=== PATIENT | female | born 1990 | race Caucasian/White ===

== ENCOUNTER → 2017-02-03 | Outpatient (CLI) | payer BC ==
[~2017-02-03] MED LIST: BACTRIM DS 8001 TAB; BACTRIM DS 8001 TAB PO; CEPHALEXIN500 M1 PO; NORCO 325 MG-51 TAB PO
== END ==
LOC: COL.RAD 08:52
DX: R11.2 Nausea with vomiting, unspecified (principal); K21.9 Gastro-esophageal reflux disease without esophagitis

== ENCOUNTER → 2017-03-03 | Outpatient (CLI) | payer BC | LOC: COL.RAD 06:18 | DX: R11.2 Nausea with vomiting, unspecified (principal) | CPT/HCPCS: A9541 ==

== ENCOUNTER → 2019-05-19 | Outpatient (CLI) | payer OTHER | LOC: COL.RAD 06:55 | DX: R11.2 Nausea with vomiting, unspecified (principal) | CPT/HCPCS: A9541 ==

== ENCOUNTER → 2020-04-02 | Outpatient (CLI) | payer OTHER | LOC: ZCOL.LAB 18:13 | DX: B34.9 Viral infection, unspecified (principal); Z20.828 Contact with and (suspected) exposure to other viral communicable diseases ==

== ENCOUNTER 2024-01-05 01:33 | Inpatient (IN) | payer OTHER ==
[2024-01-05] VITALS (41 sets, daily range): BP systolic 78–139; BP diastolic 38–79; PULSE 66–107; TEMP 97.6–98.8
[~2024-01-05] VITALS: Ht 175.3 cm; Wt 125.0 kg
--- NOTE | 2024-01-05 01:45 | NUR ---
PT TO ROOM AMBULATORY WITH S.O. STATES HAD GUSH CLEAR FLUID ABOUT 0055. FEELS OCCASIONAL MILD CRAMPS. REPORTS ACTIVE FM, SMALL AMOUNT VAGINAL SPOTTING SINCE THEN. ORIENTED TO ROOM AND GIVEN GOWN TO CHANGE INTO.
[2024-01-05] MEDS ORDERED: LR 1,000 ML IV PRN (02:00)
--- NOTE | 2024-01-05 02:08 | NUR ---
AMNIOTEST POSITIVE. SMALL TO MOD AMT CLEAR FLUID OBSERVED.
[2024-01-05] MEDS ORDERED: Penicillin G Potassium 5,000,000 UNITS in NS 100 ML IV ONE (02:45)
[2024-01-05] MEDS ORDERED: LR 1,000 ML IV SCH (02:45)
[2024-01-05 03:14] LABS: BASO % 0.4 % (0.0-2.0); EOS % 0.2 % (0.0-4.0); GRAN # 7.4 K/mm3 (1.4-6.5); GRAN % 67.2 % (42.2-75.2); HEMATOCRIT 37.1 % (37.0-47.0); LYMPH # 2.6 K/mm3 (1.2-3.4); LYMPH % 23.1 % (20.0-51.0); MEAN CELL VOLUME 95 fl (80.0-100.0); MEAN CORPUSCULAR HEMOGLOBIN 33 pg (27-31); MEAN CORPUSCULAR HGB CONC 35 g/dl (33.0-37.0); MEAN PLATELET VOLUME 10.3 fl (7.4-10.4); MONO # 0.9 K/mm3 (0.1-0.6); MONO % 7.8 % (1.7-9.3); PLATELET COUNT 171 K/mm3 (130-400); RED BLOOD COUNT 3.89 M/mm3 (4.10-5.30)
[2024-01-05] MEDS ORDERED: WELLBUTRIN SR150 M1 PO (04:06)
[2024-01-05] MEDS ORDERED: PRENATAL TABLET PO (04:07)
--- NOTE | 2024-01-05 06:30 | NUR ---
RN AT BEDSIDE. PT REPORTS CTX Q3 MINUTES, "FEELS LIKE PERIOD CRAMP," LOF CONTINUOUSLY WITH PAD AND PANTIES, PT UP TO BATHROOM.
[2024-01-05] MEDS ORDERED: Penicillin G Potassium 2,500,000 UNITS in NS 100 ML IV SCH (06:35)
[2024-01-05] MEDS ORDERED: LR & Oxytocin 500 ML IV SCH (07:00)
--- NOTE | 2024-01-05 08:00 | NUR ---
JEANIE DUONG AT BEDSIDE FOR EPIDURAL PLACEMENT. PT SITTING UPRIGHT, PULSE OX IN PLACE, LR BOLUS INFUSING PER PROTOCOL. AD DISCUSSED RISK FACTORS, PT AGREED. 0814 SINGLE SHOT ADMINISTERED PER JEANIE DUONG. PT TOLERATED WELL. VS STABLE, DIFFICULTY TRACING EFM DUE TO MATERNAL POSITIONING. 0818 PT RETURNED TO WL POSITION, EFM CAT 1, VS STABLE.
[2024-01-05] MEDS ORDERED: ROPivacaine PF 0.2% 200 ML IV ONE (08:23)
[2024-01-05] MEDS ORDERED: Ondansetron 4 MG/2 ML VIAL IV PRN (08:30)
[2024-01-05] MEDS ORDERED: ePHEDrine 50 MG/10 ML VIAL IV PRN (08:30)
[2024-01-05] MEDS ORDERED: Naloxone 0.4 MG/ML VIAL IV PRN ×2 (08:30→16:00)
[2024-01-05] MEDS ORDERED: diphenhydrAMINE 25 MG CAP PO PRN (08:30)
[2024-01-05] MEDS ORDERED: diphenhydrAMINE 50 MG/ML 1 ML VIAL IV PRN (08:30)
--- NOTE | 2024-01-05 10:47 | NUR ---
NOTIFIED OF PT SVE 0. PITOCIN OFF AFTER PROLONGED LATE DECELERATION, 02 ON, EPHEDRINE GIVEN. DECELERATION RECOVERED. PT TOLERATED WELL. "START PUSHING. WILL BE UP SOON." -
--- NOTE | 2024-01-05 11:46 | NUR ---
FHR DECREASED TO 90'S-100'S LASTING 30 SECONDS AT 1147, FHR UP TO 120'S WITH ACCELS TO 140'S AT 1147, PITOCIN DECREASED TO 2 MU/MIN DUE TO DIFFICULT TO DETERMINE CTX START AND END, PT COTINUES TO PUSH THROUGH CTX, AT 1150, FHR RETURNS TO 120'S WIHT ACCELS TO 150'S WITH MODERATE VARIABILITY.
--- NOTE | 2024-01-05 12:20 | NUR ---
PT CONTINUES TO PUSH WELL WITH CTX, PITOCIN INCREASED TO 4MU/MIN AT 1210, AT BEDSIDE AT 1215,VIEWS STRIP SVE DURING PT PUSHING, PT ENCOURAGED CONTINUES TO MOVE BABY DOWN WITH PUSHING, [facility] DONW AND HUSBNAD AT SIDE.
--- NOTE | 2024-01-05 12:38 | NUR ---
PT PUSHING X 2 HOURS, STILL NOT FEELING CTX WELL/WHEN TO PUSH, RACHEL-JEANIE CALLED, ORDER TO TURN OFF EPIDURAL AND HE WILL BE IN TO DOSE PT FOR DELIVERY IF NEEDED. DR. VEGA AT BEDSIDE DISCUSSING OPTIONS AT 12:32, ALSO ABLE TO USE FORCEPS OR VACUUM TO ASSIST IF NEEDED, PT AWARE OF OPTIONS AND FEELS TURNING OFF EPIDURAL AT THIS TIME IS BEST, AT SIDE AND AGREES.
--- NOTE | 2024-01-05 13:05 | NUR ---
IN ROOM AT 1300 TO CHECK PROGRESS, VIEWS STRIP, PT CONTINUES TO PUSH WELL WITH CTX, STILL COMFORTABLE, RACHEL-JEANIE AT BEDSIDE, REPORTS EPIDURAL ON AT SLOW DRIP FOR DELIVERY.
--- NOTE | 2024-01-05 13:21 | NUR ---
ST CATH 50CC OF CLEAR YELLOW URINE, PT CONITNUING TO PUSH WELL, COMFORTABLE WTTH CTX.
--- NOTE | 2024-01-05 13:22 | NUR ---
AT BEDSIDE AT 1322, VIEWS THERESA PERES WHILE PT PUSHING, CONTINUING TO MAKE SLOW PROGRESS.
--- NOTE | 2024-01-05 14:05 | NUR ---
1002 SVE /0 AT THIS TIME. VORB TO START PUSHING. 1400 DR. VEGA AT BEDSIDE FOR DELIVERY, CHARGE AND NSY AT BEDSIDE. 1403 VACUUM APPLIED AT THIS TIME, PUMPED UP TO GREEN ZONE, PULLED 1 CTX, 3 PUSHES. 1405 VACUUM APPLIED, PUMPED UP TO GREEN ZONE, PULLED 1 CTX 2 TIMES. 1405 VAC DELIVERY OF VIABLE MALE PER . PLACED ON MATERNAL ABDOMEN AND CARE ASSUMED BY NSY RN. PITOCIN STOPPED. JEANIE DUONG AT BEDSIDE TO BOLUS EPIDURAL FOR REPAIR. 1419 OF PLACENTA WITH GENTLE TRACTION PER . PITOCIN BOLUS STARTED. FUNDUS FIRM AT [facility]. DR. VEGA REPAIRED 2ND DEGREE LACERATION. VS STABLE. ICE PACK PAD APPLIED, BED PUT BACK TOGETHER. PT COMFORTABLE.
[2024-01-05] MEDS ORDERED: Chloroprocaine PF 3% (30 MG/ML) 20 ML VIAL ONE (14:10)
--- NOTE | 2024-01-05 14:30 | NUR ---
PT REPOSITIONED WITH ICE TO PERINEUM, CATH WITH RED EMIR, 50CC CLEAR YELLOW URINE EMPTIED, FUNDUS FIRM AT U, BABE IN MOMS ARMS WITH DAD AT SIDE, ICE WATER GIVEN WITH WARM BLANKET, +BONDING NOTED.
[2024-01-05] MEDS ORDERED: Loratadine 10 MG TAB PO PRN (14:45)
[2024-01-05] MEDS ORDERED: Magnes Hydrox (MOM) 80 MG/ML 30 ML CUP PO PRN (14:45)
--- NOTE | 2024-01-05 14:45 | NUR ---
AT 1443 EPHEDRINE 10MG GIVEN IV PER ORDER FOR DECREASED BP, IVF BOLUS RUNNING, MOM DENIES NAUSEA, FUNDUS FIRM, BABE REMAINS IN MOMS ARMS. AT 1448, BP RECHECK 91/51, PULSE 85
--- NOTE | 2024-01-05 15:00 | NUR ---
ASSIST MOM WITH , LATCH ON L.SIDE, MOM TOLERATES WELL, DAD AT SIDE. FUNDUS REMAINS FIRM, MOM COMFORTABLE AT THIS TIME.
--- NOTE | 2024-01-05 15:15 | NUR ---
CONTINUES TO BREASTFEED, BABE TO RIGHT SIDE.
[2024-01-05] MEDS ORDERED: Measles/Mumps/Rubella Virus Vaccine Live w Diluent 0.5 ML VIAL SQ SCH (16:00)
[2024-01-05] MEDS ORDERED: Witch Hazel 50% Pads Bulk TUB TP PRN (16:00)
[2024-01-05] MEDS ORDERED: Ibuprofen 600 MG TAB PO SCH (16:00)
[2024-01-05] MEDS ORDERED: Phenylephrine/Mineral Oil/Petrolatum 57 GM TUBE RC PRN (16:00)
[2024-01-05] MEDS ORDERED: oxyCODONE 5 MG TAB PO PRN (16:00)
[2024-01-05] MEDS ORDERED: Mag/Al Hydrox/Simeth Susp 30 ML CUP PO PRN (16:00)
[2024-01-05] MEDS ORDERED: Acetaminophen 500 MG TAB PO SCH (16:00)
--- NOTE | 2024-01-05 16:30 | NUR ---
COLLEENE TO NURSERY WITH DAD BY NURSERY NURSE, MOM GIVEN TYLENOL 1000MG AND IBUPROFEN 600MG PO PER ORDER FOR BOTTOM PAIN AND CRAMPING, NEW ICE PACK TO SWOLLEN PERINEUM, WILL PLAN TO MOVE ROOMS WHEN FEELING BETTER WITH PAIN MEDICATION, MOM SNACKING WITH CHEEZITS, POP TARTS AND WATER.
[2024-01-05] MEDS ORDERED: Sennosides/Docusate 8.6-50 MG TAB PO SCH (17:00)
--- NOTE | 2024-01-05 17:40 | NUR ---
PT ABLE TO LIFT LEGS BILATERALLY FOR 10S. PT STOOD AT SIDE OF BED THEN AMBULATED TO BATHROOM EASILY. SMALL VOID <50MLS. EPIDURAL CATHETER REMOVED, NEW GOWN, PAD, AND PANTIES PLACED. PT TOLERATED WELL. AMBULATORY TO ROOM, COMFORTABLE IN BED.
[2024-01-05] MEDS ORDERED: traZODone 50 MG TAB PO PRN (21:00)
[2024-01-06 04:05] VITALS: BP 128/63; PULSE 81; TEMP 98.4
[2024-01-06 05:25] LABS: HEMATOCRIT 29.3 % (37.0-47.0)
[2024-01-06 05:29] LABS: HEMOGLOBIN 10.3 g/dl (12.5-16.0)
[2024-01-06 08:00] VITALS: BP 116/69; PULSE 82; TEMP 97.9
[2024-01-06] MEDS ORDERED: buPROPion SR (12-HR) 150 MG TAB PO SCH (09:00)
[2024-01-06] MEDS ORDERED: Prenatal Vitamins/Iron/FA TAB PO SCH (09:00)
[2024-01-06 12:00] VITALS: BP 116/53; PULSE 83; TEMP 98
[2024-01-06 16:25] VITALS: BP 123/63; PULSE 75; TEMP 97.9
[2024-01-06 22:00] VITALS: BP 119/68; PULSE 78; TEMP 98.1
--- NOTE | 2024-01-07 05:13 | NUR ---
0512 pt did not want to be woken up for the mortrin and tylenol and requested it now when she woke to feed the baby.
[2024-01-07 10:00] VITALS: BP 136/71; PULSE 65; TEMP 98.2
== END 2024-01-07 15:30 | disposition home or self-care (01) | DRG 807 ==
LOC: LDRO 01:33 → LDR 01:45 → OB 01:46 → LDRO 01:46 → OB 17:54
PROVIDERS: Student in an Organized Health Care Education/Training Program; ADMIT Obstetrics & Gynecology
PROC: 10D07Z6 Extraction of Products of Conception, Vacuum, Via Natural or Artificial Opening (ICD-10-PCS; principal; 2024-01-05)
PROC: 0KQM0ZZ Repair Perineum Muscle, Open Approach (ICD-10-PCS; 2024-01-05)
DX: O99.824 Streptococcus B carrier state complicating childbirth (principal); Z37.0 Single live birth; O63.1 Prolonged second stage (of labor); O99.214 Obesity complicating childbirth; O99.344 Other mental disorders complicating childbirth; F41.9 Anxiety disorder, unspecified; O70.1 Second degree perineal laceration during delivery; Z3A.37 37 weeks gestation of pregnancy
CPT/HCPCS: J2401; J2540; J2590; J2795; J7120